=== PATIENT | female | born 1990 | race Caucasian/White ===

== ENCOUNTER 2018-12-12 00:32 | Emergency (ER) | payer BC, OTHER ==
[~2018-12-12] VITALS: Ht 165.1 cm; Wt 91.1 kg
[~2018-12-12 00:32] MED LIST: HYDR-4011 PO
[2018-12-12 00:36] VITALS: Ht 165.1 cm; Wt 91.1 kg
[2018-12-12] MEDS ORDERED: ONDANSETRON 4 MG INJ IV STA (00:45)
[2018-12-12] MEDS ORDERED: SOD CHLORIDE 0.9% 1,000 ML IV STA (00:45)
[2018-12-12] MEDS ORDERED: morphine 2 MG INJ IV STA (00:45)
[2018-12-12] MEDS ORDERED: KETOROLAC 30 MG INJ IV STA (01:16)
[2018-12-12] MEDS ORDERED: HYDROmorphONE 0.5 MG/0.5 ML SYG IV STA (01:16)
[2018-12-12] MEDS ORDERED: POTASSIUM CHLORIDE (SR) 20 MEQ TAB PO ONE (01:53)
[2018-12-12 02:03] VITALS: BP 115/65; PULSE 88; RESP 16
== END 2018-12-12 02:33 | disposition home or self-care (01) ==
LOC: E/R 00:32
DX: N20.1 Calculus of ureter (principal); E87.6 Hypokalemia; N83.201 Unspecified ovarian cyst, right side
CPT/HCPCS: 36415; 74176; 80053; 81003; 81025; 83690; 85025; 96374; 96375; 99285; J1170; J1885; J2270; J2405; J7030